=== PATIENT | male | born 1980 | race Caucasian/White ===

== ENCOUNTER → 2022-10-20 | Outpatient (CLI) | payer SELFPAY ==
--- NOTE | 2022-10-20 08:07 | MRI_ITS ---
EXAM: MR HEAD WITHOUT AND WITH INTRAVENOUS CONTRAST CLINICAL INDICATION: Right trigeminal neuralgia -- With attention to the posterior fossa TECHNIQUE: Multiplanar and multisequence MR images of the brain were obtained without and with intravenous contrast. CONTRAST: IV Yes YES COMPARISON: No relevant prior studies available. FINDINGS: BRAIN AND EXTRA-AXIAL SPACES: Prominent CSF spaces in the medial surface of the cerebellar hemispheres may represent small benign arachnoid cysts. Following IV contrast administration, there are no abnormal enhancing lesions intra-axially and extra-axially. No abnormal enhancing lesions of the trigeminal nerves and pathways. No intra- or extra-axial hemorrhage. No evidence of acute infarct. No intracranial mass or mass effect. There is preservation of the encarnacion/white matter interface. Normal and symmetrical Meckel''s cave cisterns. No focal signal abnormalities throughout the brain parenchyma in all pulse sequences. SELLA: Unremarkable. Normal sella turcica, pituitary gland, infundibular stalk, optic chiasm and hypothalamus. AUDITORY SYSTEM: Unremarkable. The internal auditory canals are patent. BONES/JOINTS: Unremarkable. No discrete lytic or blastic abnormalities. SINUSES: Prominent mucus retention cyst in the right maxillary sinus. Normal remaining paranasal sinuses. MASTOID AIR CELLS: Unremarkable as visualized. Clear. ORBITS: Unremarkable as visualized. Both globes, extraocular muscles, optic nerves and retrobulbar fat appear unremarkable. VASCULATURE: Unremarkable as visualized. Normal flow voids in the major intracranial circulation. MRI/Brain W/WO Contrast IMPRESSION: 1. Prominent CSF spaces behind the medial surfaces of the cerebellar hemispheres may represent small benign arachnoid cysts otherwise negative MRI brain with and without contrast. 2. No MRI evidence of any abnormal enhancing lesions of the trigeminal nerves and their respective pathways. Electronically Signed: Americo Kim MD at 13:17 EDT ,
[2022-10-20 12:06] LABS: Hematocrit 43.2 % (40-54); Hemoglobin 14.6 g/dL (13.0-16.5); Mean Corp Hgb Conc 33.8 g/dL (32-36); Mean Corpuscular Volume 88.7 fL (80-94); Mean Platelet Vol. 9.6 fl (6.2-12.0); Platelet Count 292 K/mm3 (150-450); RBC Distribution Width CV 13.2 % (11.6-14.6); RBC Distribution Width SD 43.1 fl (35.1-43.9); Red Blood Count 4.87 M/mm3 (4.6-6.2)
[2022-10-20 12:33] LABS: Vitamin B12 582 pg/mL (211-911)
[2022-10-20 13:04] LABS: ALB/GLOB Ratio 1.1 RATIO (0.9-2.4); AST(SGOT) 16 U/L (15-37); Alanine Aminotransfer ALT/SGPT 39 U/L (16-61); Albumin, Serum 4.2 g/dL (3.2-5.0); Alkaline Phosphatase 49 U/L (45-117); Anion Gap 6 (5-15); BUN 11 mg/dL (7-18); Calcium,Total 9.3 mg/dL (8.5-10.1); Chloride 103 mmol/L (98-107); Creatinine, Serum 0.85 mg/dL (0.70-1.30); EST Glomerular Filtration Rate 106 mL/min (>60); Est Glom Filt Rate - Afr Amer 128 mL/min (>60); Globulin 3.8 g/dL (2.2-4.2); Glucose 86 mg/dL (74-106); Potassium 4.2 mmol/L (3.5-5.1); Sodium Level 138 mmol/L (136-145); Thyroid Stim Hormone (TSH) 1.42 uIU/mL (0.358-3.74)
[2022-10-25 00:06] LABS: Vitamin B1, Thiamine 166.6 nmol/L (66.5-200.0)
== END | disposition home or self-care (01) ==
PROVIDERS: PCP Family Medicine; Referring Provider Psychiatry & Neurology Neurology; Visit Provider Psychiatry & Neurology Neurology
DX: G50.0 Trigeminal neuralgia (principal)
CPT/HCPCS: 36415; 70553; 80053; 82607; 82746; 84425; 84443; 85027; A9575